=== PATIENT | male | born 1960 | race Caucasian/White ===

== ENCOUNTER 2020-11-24 09:26 | Emergency (ER) | payer OTHER ==
[~2020-11-24 09:26] MED LIST: ALBUTEROL1.25 MG/3 INH; CYCLOBENZAPRINE10 MG PO; DIAMODE2 MG PO; FISH OIL 1,0001 EACH PO; LEVOCETIRIZINE D5 MG PO; LOVASTATIN10 MG PO; MAGIC MOUTHWASH PO; MEN'S MULTIVIT1 EAC1 PO; NEURONTIN 300300 MG PO; NORCO ELIXIR PO; PROAIR HFA8.5 GM INH; PROTONIX40 MG PO; SINGULAIR10 MG PO; WIXELA 100-501 EACH INH
[2020-11-24 09:46] LABS: HEMOGLOBIN 15.3 gm/dl (14.0-17.5); RED BLOOD COUNT 4.45 M/UL (4.20-5.50); WHITE BLOOD COUNT 6.2 K/UL (4.5-11.0)
[2020-11-24 10:17] LABS: BUN/CREATININE RATIO 7 (0-10)
== END 2020-11-24 12:10 | disposition home or self-care (01) ==
LOC: ER1 09:26
PROVIDERS: Emergency Medicine
DX: I47.1 Supraventricular tachycardia (principal)
CPT/HCPCS: 71045; 80053; 82550; 82553; 83735; 83874; 84484; 85025; 93005; 99285

== ENCOUNTER → 2021-02-17 | Outpatient (CLI) | payer OTHER | LOC: HEART 5 15:00 | DX: I47.1 Supraventricular tachycardia (principal) ==

== ENCOUNTER → 2021-03-19 | Outpatient (CLI) | payer OTHER | LOC: HEART CORB 08:58 | DX: I47.1 Supraventricular tachycardia (principal); I10 Essential (primary) hypertension; I42.9 Cardiomyopathy, unspecified; I08.8 Other rheumatic multiple valve diseases; I27.20 Pulmonary hypertension, unspecified | CPT/HCPCS: 93306 ==

== ENCOUNTER → 2021-05-29 | Outpatient (CLI) | payer OTHER ==
[~2021-05-29] MED LIST changes: +ANORO ELLIPTA1 EACH INH; +LO-DOSE ASPIRIN81 MG PO; +TOPROL XL25 MG PO; +VENTOLIN/PROVE0.5 ML INH; +VITAMIN D3125 MC1 PO; +ZESTRIL/PRINIVI10 MG PO
[2021-05-29 10:02] LABS: HEMOGLOBIN 14.1 gm/dl (14.0-17.5); RED BLOOD COUNT 4.13 M/UL (4.20-5.50); WHITE BLOOD COUNT 5.8 K/UL (4.5-11.0)
[2021-05-29 10:26] LABS: BUN/CREATININE RATIO 11 (0-10)
== END ==
LOC: LAB 09:26
PROVIDERS: Internal Medicine Cardiovascular Disease
DX: I47.1 Supraventricular tachycardia (principal); I10 Essential (primary) hypertension; I42.9 Cardiomyopathy, unspecified; R00.2 Palpitations
CPT/HCPCS: 36415; 71046; 80048; 85025

== ENCOUNTER 2021-06-02 10:12 | Outpatient (CLI) | payer OTHER ==
[~2021-06-02] VITALS: Ht 170.2 cm; Wt 66.2 kg
[~2021-06-02 10:12] MED LIST changes: -ANORO ELLIPTA1 EACH INH; -LO-DOSE ASPIRIN81 MG PO; -TOPROL XL25 MG PO; -VENTOLIN/PROVE0.5 ML INH; -VITAMIN D3125 MC1 PO; -ZESTRIL/PRINIVI10 MG PO
[2021-06-02] MEDS ORDERED: ANORO ELLIPTA1 EACH INH (11:55)
[2021-06-02] MEDS ORDERED: LO-DOSE ASPIRIN81 MG PO (11:55)
[2021-06-02] MEDS ORDERED: ZESTRIL/PRINIVI10 MG PO (11:56)
[2021-06-02] MEDS ORDERED: TOPROL XL25 MG PO (11:57)
[2021-06-02] MEDS ORDERED: VENTOLIN/PROVE0.5 ML INH (12:00)
[2021-06-02] MEDS ORDERED: VITAMIN D3125 MC1 PO (12:01)
== END 2021-06-03 10:11 | disposition home or self-care (01) ==
LOC: CATH 10:12 → PROG CARE 18:43 → CATH 06-03 10:11
DX: Z01.818 Encounter for other preprocedural examination (principal); I10 Essential (primary) hypertension; I47.1 Supraventricular tachycardia; I42.9 Cardiomyopathy, unspecified; R00.2 Palpitations; Z20.822 Contact with and (suspected) exposure to COVID-19
CPT/HCPCS: 85347; 93005; 93613; 93620; 93621; 93622; 93623; 99152; 99153; C1730; C1733; C1760; C1766; J1200; J1644; J2250; J3010; J7040; Q9965

== ENCOUNTER 2021-11-11 10:34 | Emergency (ER) | payer OTHER ==
[~2021-11-11 10:34] MED LIST changes: +ANORO ELLIPTA1 EACH INH; +LO-DOSE ASPIRIN81 MG PO; +TOPROL XL25 MG PO; +VENTOLIN/PROVE0.5 ML INH; +VITAMIN D3125 MC1 PO; +ZESTRIL/PRINIVI10 MG PO
[2021-11-11 12:34] LABS: HEMOGLOBIN 16.3 gm/dl (14.0-17.5); RED BLOOD COUNT 4.58 M/UL (4.20-5.50); WHITE BLOOD COUNT 6.6 K/UL (4.5-11.0)
[2021-11-11 13:11] LABS: BUN/CREATININE RATIO 14 (0-10)
[2021-11-11] MEDS ORDERED: MOTOFEN TABLET1 EACH PO (15:15)
[2021-11-11] MEDS ORDERED: BENZONATATE200 MG PO (15:15)
[2021-11-11] MEDS ORDERED: ZOFRAN ODT 4 MG4 MG SL (15:15)
== END 2021-11-11 15:24 | disposition home or self-care (01) ==
LOC: ER1 10:34
PROVIDERS: Emergency Medicine
DX: R19.7 Diarrhea, unspecified (principal); R05.9 Cough, unspecified; F17.200 Nicotine dependence, unspecified, uncomplicated
CPT/HCPCS: 71045; 80053; 81001; 83690; 85025; 96361; 96374; 99284; J2405